=== PATIENT | male | born 1955 | race Caucasian/White ===

== ENCOUNTER → 2021-01-16 09:42 | Outpatient (BNVA) | payer MEDICARE, SELFPAY | PROVIDERS: PCP Internal Medicine; Visit Provider Urology | DX: N28.1 Cyst of kidney, acquired (principal) | CPT/HCPCS: 99212 ==

== ENCOUNTER 2022-01-11 14:07 | Outpatient (REF) | payer MEDICARE, SELFPAY ==
--- NOTE | ~2022-01-11 | US_ITS ---
EXAMINATION: US RETROPERITONEAL LIMITED (RENAL ONLY) CLINICAL INFORMATION: Cyst of kidney, acquired. COMPARISON: None TECHNIQUE: Real-time imaging of the kidneys. FINDINGS: RIGHT KIDNEY: 11.0 x 6.4 x 5.2 cm (SAG x AP x TRV). The kidney is normal in size, contour, and echogenicity. Renal cortical thickness is normal. No renal calculi or hydronephrosis. 2.7 cm anechoic simple cyst exophytic from the upper pole the right kidney. LEFT KIDNEY: 12.1 x 6.5 x 5.2 cm (SAG x AP x TRV). The kidney is normal in size, contour, and echogenicity. Renal cortical thickness is normal. No renal calculi or hydronephrosis. 1.5 cm heterogeneous, mixed echogenicity mass seen arising from the cortex of left mid-upper kidney. No internal vascularity demonstrable on color Doppler images. US/US renal BI IMPRESSION: 1.5 cm indeterminate mass exophytic from the cortex of the left mid-upper kidney. Malignancy is a consideration. Recommend definitive evaluation with renal protocol CT or preferably MRI with and without contrast. The report will be called to the ordering clinician by a [facility] Millinery Salesperson.
== END 2022-01-11 14:08 | disposition home or self-care (01) ==
LOC: HO.HMGCX 14:07
PROVIDERS: PCP Internal Medicine; Visit Provider Urology
DX: N28.1 Cyst of kidney, acquired (principal)
CPT/HCPCS: 76775

== ENCOUNTER → 2022-01-15 10:21 | Outpatient (BNVA) | payer MEDICARE, SELFPAY | PROVIDERS: PCP Internal Medicine; Visit Provider Urology | DX: N28.1 Cyst of kidney, acquired (principal) | CPT/HCPCS: 99212 ==

== ENCOUNTER 2023-05-05 15:44 | Outpatient (REF) | payer MEDICARE, SELFPAY | END 2023-05-05 15:45 | disposition home or self-care (01) | LOC: HO.MRI 15:44 | PROVIDERS: PCP Internal Medicine; Visit Provider Urology | DX: N28.1 Cyst of kidney, acquired (principal) | CPT/HCPCS: 74181 ==

== ENCOUNTER 2023-06-01 14:52 | Outpatient (AMB) | payer MEDICARE, SELFPAY ==
--- NOTE | 2023-06-01 15:19 | MHC.OFFVIS ---
Intake Intake Visit Reasons: MRI Follow Up (set) Intake Note: Patient is present for MRI Allergies No Known Allergies [No Known Allergies*] Allergy (Verified 06/01/23 15:23) Medication List - Last Reconciled 06/21/23 by Usman Murphy MD amlodipine-benazepril 5-10 mg 1 cap PO DAILY dorzolamide (PF) 2% 1 drp ophthalmic (eye) TID hydrochlorothiazide 25 mg PO DAILY HPI HPI Comments History of Present Illness Details Mr Salinas is a very pleasant male. He is a patient of Dr Acevedo. He is seen for the following urologic conditions. - renal lesion Follow-up MRI imaging has shown stability with imaging of kidneys There is a cyst in the pancreas for which follow-up imaging recommended q.6 month He knows this and will be passed to his primary care - A 1.7 cm cystic appearing lesion in the tail of the pancreas without communication with the main pancreatic duct and no enhancing components. This could represent a cystic neoplasm such as mucinous cystic neoplasm, sidebranch IPMN or pseudocyst. Per ACR white paper* on the management of incidental pancreatic cysts, for cysts measuring 1.5 to 1.9 cm with no main pancreatic duct communication or main pancreatic duct communication cannot be established by imaging for patients less than 80 years of age, recommendations are either: Every 6 month imaging follow-up with contrast-enhanced MR or CT pancreas protocol x4 OR GI referral for consideration of endoscopic ultrasound and fine-needle aspiration*. Renal lesion:??Bilateral renal cyst Continued surveillance of hemorrhagic renal cyst on left kidney Imaging confirm stability this year ?The renal mass was diagnosed incidentally, during evaluation for, GI symptoms.?Imaging included 04/15/16 , a CT (computed tomography) scan of the abdomen/pelvis posterior interpole right renal cortical cyst 2 cm. Lateral left interpole renal exophytic cyst 1.4 cc ? 04/27/16 , an MRI of the abdomen T2 right upper pole right kidney nonenhancing 2 cm cyst. T2 dark T1 contents mass 1.4 cm mid pole left kidney. It could represent hemorrhagic cyst versus renal cell carcinoma. Recommend repeat imaging in 6 months. ? 11/29 , a CT (computed tomography) scan of the abdomen/pelvis- hemorrhabic cyst 17mm ? 11/30 , a renal ultrasound, Left 1.6 cm hemorraghic cyst, Right 1.5cm simple cyst ? 12/01 , a renal ultrasound, right 2.5cm, left 1.6cm ? 01/02 , a renal ultrasound bilateral cysts, unchanged in size.? - 01/03 renal ultrasound bilateral cysts left 1.6 cm hemorrhagic cyst remains stable - 01/04 renal ultrasound right unchanged cyst, left 1.6 cm hemorrhagic cyst suggesting MRI again however original 2016 MRI not available for re-evaluation - 05/07 MRI bilateral renal cyst Bosniak 1 and 2 up to 1.6 cm. No further imaging recommendation recommended ?Prior treatment(s) included surveillance ?The diagnosis was Left ? cyst -related to sarcoidosis.? .? Lower Urinary Tract Symptoms:?Minimal symptoms once switched from soda. ?Current visit is for further evaluation of, lower urinary tract symptoms.?Prostate Symptom Score Moderate (9-19), Bother 3.?Symptoms include incomplete emptying, urgency, weak stream, nocturia (>2), and are progressing.?Prostate volume 30-50gm.?Treatment plan Observation.? [facility] Medical History Mitral valve regurgitation Insomnia Anal fissure Sarcoidosis Hypercholesterolemia Gout HTN (hypertension) Type 2 diabetes mellitus without complication, without long-term current use of insulin Combined arterial insufficiency and corporo-venous occlusive erectile dysfunction Bladder outlet obstruction Renal lesion Surgical History History of surgery Review of Systems Const Denies chills and Denies fever(s) Card Reports no additional complaints and Denies syncope Resp Denies cough GI Denies abdominal pain and Denies heartburn Reports as per HPI and Denies change in libido Neuro Denies syncope Psych Denies change in libido Endo Denies change in libido Physical Exam Const General: cooperative, healthy appearing, comfortable and no acute distress Orientation/consciousness: patient oriented x3 HEENT Face and sinus: Yes normal facial exam Mouth: moist mucous membranes Neck Neck: Yes normal visual inspection, Yes full ROM and Yes trachea midline Chest Chest palpation & inspection: normal inspection of the chest Resp Effort & Inspection: normal respiratory effort, able to speak in complete sentences and no respiratory distress GI Inspection: Yes normal to inspection Back/Spine/Pelvis Cervical Spine: normal cervical lordosis Thoracic/Lumbar Spine: thoracic and lumbar spine normal to inspection Skin General skin exam: no rashes or lesions noted Neuro General: patient oriented x3, gait normal, tone normal and moves all extremities Extrem General: Yes normal to inspection and Yes capillary refill normal Assessment & Plan Assessment & Plan (1) Complex renal cyst: Comment: Left 0.5 cm complex renal cyst Code(s): N28.1 - Cyst of kidney, acquired (2) Pancreatic cyst: Code(s): K86.2 - Cyst of pancreas Plan Refer GI re pancreatic cyst P.r.n. follow-up Patient Instructions: Imaging studies, laboratory and physical exam results were discussed and reviewed in detail. No major barriers to patient understanding were identified. An opportunity to ask questions regarding the treatment plan was provided. All questions were answered. The patient expressed understanding and agreement with the above treatment plan. The patient is aware they should contact our office by phone for worsening of their current condition or the appearance of new urologic symptoms. Compliance is encouraged with any medications and followup testing that is ordered. It is a privilege to participate in the urologic care of your patient. If you have any questions or concerns regarding treatment for the above conditions, or other urologic issues, please do not hesitate to contact me. The office telephone contact is [phone]. This note is constructed using voice recognition software. While every effort has been made to ensure accuracy wire taper errors may have been included. Yours sincerely, Dr Usman Murphy MD, [facility] - Urology Providers of Expert, Compassionate Care for the Genitourinary System Coding Level of Care Code Est Pt Level 4 (86968) Diagnoses Complex renal cyst N28.1 Pancreatic cyst K86.2
== END 2023-06-01 15:47 | disposition home or self-care (01) ==
PROVIDERS: PCP Internal Medicine; Visit Provider Urology
DX: N28.1 Cyst of kidney, acquired (principal); K86.2 Cyst of pancreas
CPT/HCPCS: 99214

== ENCOUNTER → 2023-06-01 14:52 | Outpatient (BNVA) | payer MEDICARE, SELFPAY | PROVIDERS: PCP Internal Medicine; Visit Provider Urology | DX: N28.1 Cyst of kidney, acquired (principal); K86.2 Cyst of pancreas | CPT/HCPCS: 99212 ==

== ENCOUNTER 2025-01-23 12:57 | Outpatient (AMB) | payer MEDICARE, SELFPAY ==
[2025-01-23 13:14] VITALS: BP 162/88; PULSE 71; O2SAT 95; BMI 33.7
--- NOTE | 2025-01-23 13:14 | A.OFFVIS_ITS ---
Vital Signs 01/23/25 13:14 Height 5 ft 6 in Weight 209 lb BMI 33.7 BP 162/88 H Blood Pressure Location Rt brachial Position Sitting Pulse 71 Pulse Source Pulse Oximeter Pulse Oximetry (%) 95 Oxygen Delivery Method Room Air Intake Visit Reasons: hx of sarcoid and lung nodule Allergies No Known Allergies (No Known Allergies*) Allergy (Verified 01/23/25 13:20) HPI HPI hx of sarcoid and lung nodule: Details: Joaquín is a pleasant 69 year old male, former less than 5 pack year smoker, quit 50 years ago with underlying Sarcoidosis, DMII, HTN, Gout and moderate aortic stenosis. The patient was diagnosed with sarcoidosis following a biopsy in 2014, initially presented with dyspnea. He underwent a course of prednisone x 3 months post-diagnosis, which effectively managed his symptoms, and he has not experienced any flare-ups since then. He currently denies any respiratory symptoms. Last chest CT 05/2024 revealed stable pulmonary nodules, largest 4mm RML without lymphadenopathy. He denies prior h/o asthma/COPD or URI. He is followed by ophthamology and reports no issues. The patient has a history of mitral valve regurgitation and aortic stenosis, but he does not currently follow up with a low heel builder. He has a referral placed by PCP, awaiting evaluation. He currently denies any cardiac symptoms. He had an EKG earlier this year, which was reportedly normal. His blood pressure was noted to be high during the visit, and he has not been taking his antihypertensive medication for about a week, plans to further discuss with low heel builder. He denies any known history of kidney issues other than some cysts as well as pancreas, diagnosed by biopsy a few years prior which are being monitored by PCP?. 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 COUNT INCLUDES THE [facility] Medical History (Updated 01/23/25 @ 15:03 by Karina Shea NP) Mitral valve regurgitation Insomnia Anal fissure Sarcoidosis Hypercholesterolemia Gout HTN (hypertension) Type 2 diabetes mellitus without complication, without long-term current use of insulin Combined arterial insufficiency and corporo-venous occlusive erectile dysfunction Bladder outlet obstruction Renal lesion Surgical History History of surgery Social History (Updated 01/23/25 @ 13:20 by Flor Ye CMA) Patient Tobacco Use Status: Former Tobacco user Review of Systems Const Denies chills, Denies excessive sweating, Denies fever(s), Denies headache(s) and Denies night sweats Eyes Denies dry eyes, Denies irritation and Denies itchy eyes ENT Reports Normal hearing present, Denies headache(s), Denies nasal congestion, Denies nasal discharge, Denies post nasal drip and Denies sore throat Card Denies chest pain, Denies chest pain at rest, Denies chest pain with activity, Denies claudication, Denies leg edema, Denies dyspnea, Denies dyspnea on exertion, Denies orthopnea and Denies paroxysmal nocturnal dyspnea Resp Denies chest congestion, Denies cough, Denies excessive phlegm production, Denies pain on inspiration, Denies pain with cough, Denies dyspnea, Denies dyspnea on exertion, Denies stridor and Denies wheezing Musc Denies myalgias Neuro Reports Normal hearing present and Denies headache(s) Endo Denies excessive sweating Hiram/Lymph Denies lymphadenopathy Aller/Immun Denies itchy eyes, Denies seasonal rhinorrhea and Denies wheezing Physical Exam Vital Signs: Last Vital Signs Pulse 71 01/23/25 13:14 BP 162/88 H 01/23/25 13:14 Pulse Ox 95 01/23/25 13:14 Oxygen Delivery Method Room Air 01/23/25 13:14 BMI result Body Mass Index 33.7 Const General: cooperative, healthy appearing, comfortable, no acute distress, well developed and alert Orientation/consciousness: patient oriented x3 Limitations: no limitations HEENT Head: Yes normal to inspection, Yes normocephalic and Yes atraumatic Ears: hearing grossly normal bilaterally and external ears normal Eyes General: appearance normal, both eyes and all related structures Eyelids: Yes eyelids normal Sclerae: sclerae normal EOM: EOMs intact bilaterally Neck Neck: Yes normal visual inspection and Yes no lymphadenopathy Lymphatic: no lymphadenopathy noted Chest Chest palpation & inspection: normal inspection of the chest Resp Effort & Inspection: normal respiratory effort, able to speak in complete sentences, no audible wheezes, no cough, no stridor, not tachypneic, no tripod positioning and no use of accessory muscles Auscultation: clear to auscultation bilaterally Cardio Jugular venous distension: no JVD Rate: regular rate Rhythm: regular rhythm Skin Other: warm, dry General skin exam: no rashes or lesions noted Neuro General: patient oriented x3 Cranial nerves: Yes Normal hearing present Cognition (Neuro): normal cognition Gait exam (Neuro): Normal gait present Extrem General: Yes normal to inspection, Yes capillary refill normal, Yes no clubbing, cyanosis or edema and Yes no pedal edema Psych Appearance: grossly normal and well kempt Speech and movement: Normal speech and movement present and Clear speech present Affect: normal affect Attitude: cooperative Thought process: Normal thought process present Thought content: Normal thought content present Insight: Good insight present (Psych) Judgement: Good judgement present (Psych) Assessment & Plan Assessment & Plan (1) Sarcoidosis: Code(s): D86.9 - Sarcoidosis, unspecified Category: Medical (2) Multiple pulmonary nodules: Code(s): R91.8 - Other nonspecific abnormal finding of lung field Category: Medical Plan The plan for sarcoidosis includes obtaining a baseline pulmonary function test and scheduling a follow-up CT chest with contrast in May to monitor for any changes in the nodules within the lungs and assess for any lymphadenopathy. The patient is advised to continue annual eye exams and to inform his eye doctor about his history of sarcoidosis. Regular monitoring for respiratory symptoms is recommended, with instructions to contact the clinic if symptoms such as dyspnea or cough develop. Patient reportedly had a normal EKG recently through PCP, will attempt to obtain an encourage patient to establish with Cardiology. Will also request liver and kidney labs, patient reports no significant findings in the past. All questions were answered and patient is in agreement of plan. Will follow up to review results or sooner if needed. Orders: Orders CT chest w IV con 4 Months D86.9 - Sarcoidosis, unspecified, R91.8 - Other nonspecific abnormal finding of lung field PFT pulmonary function test Today D86.9 - Sarcoidosis, unspecified Coding Level of Care Code New Pt Level 4 (38574) Diagnoses Sarcoidosis D86.9 Multiple pulmonary nodules R91.8
--- OUTSIDE RECORDS SUMMARY | 2025-01-23 15:58 | XMS_ITS | Encounter Summary ---
Author Organization [facility] [address] Address [address] [place] [address] Care Team Providers Care Apprentice Pattern Maker Name Role Phone Gregorio Acevedo MD Primary Care Provider [phone] Reason for Visit * Reason Onset Date Comments information requested 12/24/2024 Encounter Details Date Type Department Care Team ([facility] st Contact Info) Description 12/24/2024 Telephone [facility] [address] [place] [address] Dima Lal MD [address] [place] [address] Social History Tobacco Use Types Packs/Day Years Used Date Smoking Tobacco: Former Smokeless Tobacco: Never Alcohol Use Standard Drinks/Week Comments No 0 (1 standard drink = 0.6 oz pur e alcohol) Sex and Gender Information Value Date Recorded Sex Assigned at Not on file Legal Sex Male 10:03 PM EST Gender Identity Not on file Sexual Orientation Not on file documented as of this encounter Progress Notes * Sandra Hair MA - 12/24/2024 1:07 PM EDT Call Jessica at number provided. I couldn't get a hold with nobody and was in the line for 30mins. * Peggy Koehler - 12/24/2024 11:12 AM EDT Jessica from [facility] Dr. Gregorio Acevedo is calling requesting clinical notes, pft report and other testing. She said they had no documentation but patient states he is seeing provider. She is asking if information can be faxed or if he hasn't been seen to give office a call . Please advise [phone] phone fax documented in this encounter Plan of Treatment Not on file documented as of this encounter Visit Diagnoses Not on filedocumented in this encounter Care Teams Apprentice Pattern Maker Relationship Specialty Start Date End Date Gregorio Acevedo MD PCP - General Internal Medicine 10/17/14 documented as of this encounter
--- OUTSIDE RECORDS SUMMARY | 2025-01-23 15:58 | XMS_ITS | Clinical Summary ---
Author Organization [facility] Address [address] [place] [address] Care Team Providers Care Digital Experience Manager Name Role Phone Gregorio Acevedo MD Primary Care Provider [phone] Allergies No known active allergies Medications Medication Sig Dispensed Refills Start Date End Date Status ciprofloxacin (CIPRO) 250 MG tablet Take 250 mg by mouth 2 (two) times a day. 0 Active Active Problems Problem Noted Date Diagnosed Date Elevated ferritin 11/02/2019 History of sarcoidosis 11/02/2019 Other neutropenia 11/01/2019 Thrombocytopenia 11/01/2019 FUO (fever of unknown origin) 11/01/2019 Left leg cellulitis 11/01/2019 Bariatric surgery status 11/01/2019 Weight loss 11/01/2019 Social History Tobacco Use Types Packs/Day Years Used Date Smoking Tobacco: Former Smokeless Tobacco: Never Alcohol Use Standard Drinks/Week Comments No 0 (1 standard drink = 0.6 oz pur e alcohol) Sex and Gender Information Value Date Recorded Sex Assigned at Not on file Gender Identity Not on file Sexual Orientation Not on file Job Start Date Occupation Industry Not on file Not on file Not on file Last Filed Vital Signs Vital Sign Reading Time Taken Comments Blood Pressure 132/60 11/02/2019 3:13 PM EDT Pulse 64 11/02/2019 3:13 PM EDT Temperature 36.3 C (97.3 F) 11/02/2019 3:13 PM EDT Respiratory Rate - - Oxygen Saturation - - Inhaled Oxygen Concentration - - Weight 80.7 kg (178 lb) 11/02/2019 3:13 PM EDT Height 166.4 cm (5' 5.5 ) 11/02/2019 3:13 PM EDT Body Mass Index 29.17 11/02/2019 3:13 PM EDT Plan of Treatment Health Maintenance Due Date Last Done Comments Hepatitis C Screening 1955 COVID-19 Vaccine (#1) 1958 Pneumococcal Vaccine (1 of 2 - PCV) 12/13/1959 Depression Screening 1965 Preventative Health Evaluation 12/13/1971 DTap / Tdap / Td (1 - Tdap) 1972 Shingrix-Zoster Vaccine (1 of 2) 1972 Colon Cancer Screening (Colonoscopy) 1998 RSV Adult > 60+ Yrs or Pregn ant (1 - Risk 60-74 years 1-dose series) 2013 Fall Risk Assessment 2018 Influenza Vaccine (#1) 2025 Hepatitis B Vaccines Aged Out No long er eligible based on patient's age to complete this topic RSV Ped < 20 months Aged Out No longe r eligible based on patient's age to complete this topic Care Teams Digital Experience Manager Relationship Specialty Start Date End Date Gregorio Acevedo MD [address] [address] PCP - General Internal Medicine 10/31/19
--- OUTSIDE RECORDS SUMMARY | 2025-01-23 15:58 | XMS_ITS | Clinical Summary ---
Author Organization [facility] [employer] [facility] Address [address] [facility] [place] [address] Phone Care Team Providers Care Agricultural And Forestry Supervisor Name Role Phone Gregorio Acevedo MD Primary Care Provider Encounters Date Type Department Care Team Description 12/24/[address] [place] [address] Dima Lal MD from Last 3 Months Social History Tobacco Use Types Packs/Day Years Used Date Smoking Tobacco: Former Smokeless Tobacco: Never Alcohol Use Standard Drinks/Week Comments No 0 (1 standard drink = 0.6 oz pur e alcohol) Sex and Gender Information Value Date Recorded Sex Assigned at Not on file Legal Sex Male 10:03 PM EST Gender Identity Not on file Sexual Orientation Not on file Obstetrics History Plan of Treatment Health Maintenance Due Date Last Done Comments COVID-19 Vaccine (#1) 1958 DTaP,Tdap,and Td Vaccines (1 - Tdap) 1972 Pneumococcal Vaccine: 50+ Ye ars (1 of 2 - PCV) 1972 Zoster Vaccines (1 of 2) 1972 RSV Immunization Adult Patie nts (1 - Risk 60-74 years 1-dose series) 2013 Abdominal Aortic Aneurysm (A AA) Screen 04/17/2022 Cholesterol Screening (Lipid Panel) 04/17/2022 Colorectal Cancer Screening: Colonoscopy 04/17/2022 Falls Risk Assessment 04/17/2022 Hepatitis C Screening 04/17/2022 Medicare Annual Wellness Visit 04/17/2022 Social Influencers of Health Screening 04/17/2022 Depression Screening 05/16/2024 Influenza Vaccine (#1) 2025 HIB Vaccines Aged Out No longer eligi ble based on patient's age to complete this topic HPV Vaccines Aged Out No longer eligi ble based on patient's age to complete this topic Hepatitis A Vaccines Aged Out No long er eligible based on patient's age to complete this topic Hepatitis B Vaccines Aged Out No long er eligible based on patient's age to complete this topic IPV Vaccines Aged Out No longer eligi ble based on patient's age to complete this topic MMR Vaccines Aged Out No longer eligi ble based on patient's age to complete this topic Meningococcal ACWY Vaccine Aged Out N o longer eligible based on patient's age to complete this topic Meningococcal B Vaccine Aged Out No l onger eligible based on patient's age to complete this topic RSV Immunization Patients Un lisa 20 months Aged Out No longer eligible b ased on patient's age to complete this topic Varicella Vaccines Aged Out No longer eligible based on patient's age to complete this topic Insurance [employer] MEDICARE ADVANTAGE Advance Directives Documents on File Type Date Recorded Patient Syrup Machine Laborer Expl anation Health Care Decision (hx) 08/15/2014 AD REYNA DIRECTIVE Health Care Decision (hx) 08/15/2014 AD REYNA DIRECTIVE Health Care Decision (hx) 08/15/2014 AD REYNA DIRECTIVE Health Care Decision (hx) 08/15/2014 AD REYNA DIRECTIVE Health Care Decision (hx) 08/15/2014 AD REYNA DIRECTIVE Health Care Decision (hx) 08/15/2014 AD REYNA DIRECTIVE Health Care Decision (hx) 08/15/2014 AD REYNA DIRECTIVE Health Care Decision (hx) 08/15/2014 AD REYNA DIRECTIVE Health Care Decision (hx) 08/15/2014 AD REYNA DIRECTIVE Health Care Decision (hx) 08/15/2014 AD REYNA DIRECTIVE Health Care Decision (hx) 08/15/2014 AD REYNA DIRECTIVE Health Care Decision (hx) 08/15/2014 AD REYNA DIRECTIVE Health Care Decision (hx) 08/15/2014 AD REYNA DIRECTIVE Health Care Decision (hx) 08/15/2014 AD REYNA DIRECTIVE Health Care Decision (hx) 08/15/2014 AD REYNA DIRECTIVE Care Teams Agricultural And Forestry Supervisor Relationship Specialty Start Date End Date Gregorio Acevedo MD PCP - General Internal Medicine 10/17/14
== END 2025-01-23 14:03 | disposition home or self-care (01) ==
LOC: HO.HPSW 12:58
PROVIDERS: PCP Internal Medicine; Referring Provider Internal Medicine; Visit Provider Nurse Practitioner Family
DX: D86.9 Sarcoidosis, unspecified (principal); R91.8 Other nonspecific abnormal finding of lung field
CPT/HCPCS: 99204

== ENCOUNTER → 2025-01-23 12:57 | Outpatient (BNVA) | payer MEDICARE, SELFPAY | PROVIDERS: PCP Internal Medicine; Referring Provider Internal Medicine; Visit Provider Nurse Practitioner Family | DX: R91.8 Other nonspecific abnormal finding of lung field (principal); D86.9 Sarcoidosis, unspecified | CPT/HCPCS: 99202 ==

== ENCOUNTER 2025-04-18 12:34 | Outpatient (REF) | payer MEDICARE, SELFPAY ==
--- NOTE | 2025-04-18 12:59 | PFT_ITS ---
Indication: Sarcoidosis Spirometry FEV1 to FVC 83%; FEV1 2.6 L; FVC 3.14 L. Bronchodilators were not used. Lung Volumes Total lung capacity 75% predicted; residual volume 59% predicted; expiratory reserve volume 69% predicted Diffusion Capacity DLCO 104% predicted Methacholine Challenge [] Flow Volume Loops Normal in appearance MVV 140% predicted Comparisons None Interpretation No obstructive ventilatory defects. Bronchodilators were not used. There is a restrictive ventilatory defect consistent with mild restrictive lung disease likely associated with a history of sarcoidosis. No comparison is available at this time. Diffusing capacity is within normal limits. Clinical correlation warranted. MTDD
== END 2025-04-18 12:35 | disposition home or self-care (01) ==
LOC: HO.RESP 12:34
PROVIDERS: PCP Internal Medicine; Visit Provider Nurse Practitioner Family
DX: D86.9 Sarcoidosis, unspecified (principal); Z87.891 Personal history of nicotine dependence
CPT/HCPCS: 94010; 94727; 94729

== ENCOUNTER → 2025-04-18 12:59 | Outpatient (BNV) | payer MEDICARE, SELFPAY | PROVIDERS: PCP Internal Medicine; Visit Provider Hospitalist | DX: D86.9 Sarcoidosis, unspecified (principal) | CPT/HCPCS: 94060; 94727; 94729 ==